=== PATIENT | male | born 1965 | race Hispanic/Latino ===

== ENCOUNTER 2022-10-08 10:27 | Inpatient (IN) | payer OTHER, SELFPAY ==
[2022-10-08 12:01] LABS: Hemoglobin 13.4 g/dL (13.5-17.5); Mean Corpuscular HGB CONC 34.4 g/dL (32.0-36.0); Mean Corpuscular Hemoglobin 32.4 pg (27.0-33.0); Mean Corpuscular Volume 94.2 fl (81.2-95.1); Mean Platelet Volume 9.6 fl (7.4-10.4); Platelet Count 249 10x3/uL (150-450); RBC Distribution Width 11.7 % (11.5-14.5); Red Blood Cell (RBC) Count 4.13 10x6/uL (4.32-5.72); White Blood Cell (WBC) Count 10.1 10x3/uL (3.5-10.5)
[2022-10-08 12:07] LABS: MDiff Complete? YES
[2022-10-08] MEDS ORDERED: Piperacillin/Tazobactam 4.5 GM VIAL ONE (12:17)
[2022-10-08 12:28] LABS: ALT (SGPT) 54 U/L (8-55); AST (SGOT) 52 U/L (5-34); Albumin 3.3 g/dL (3.5-5.0); Alkaline Phosphatase 200 U/L (40-110); Anion Gap 15 mmol/L (10-20); BUN (Urea Nitrogen) 15 mg/dL (8.4-25.7); Bilirubin, Total 0.6 mg/dL (0.2-1.2); Calc. Creatinine Clearance 0 mL/min (70-130); Calcium 9.5 mg/dL (7.8-10.44); Carbon Dioxide 24 mmol/L (22-29); Chloride 97 mmol/L (98-107); Estimated GFR 82; Globulin 5.6 g/dL (2.4-3.5); Glucose 176 mg/dL (70-105); Potassium 4.7 mmol/L (3.5-5.1); Protein, Total 8.9 g/dL (6.0-8.3); Sodium 131 mmol/L (136-145)
[2022-10-08] MEDS ORDERED: Vancomycin 1.5 GRAM/300 ML BAG 1.5 GM in Premix Bag 1 BAG IVPB SCH (13:00)
[2022-10-08 13:50] LABS: Eosinophils 33 % (0-10)
[2022-10-08 13:52] LABS: Lymphocytes 9 % (21-51)
[2022-10-08 13:53] LABS: Monocytes 9 % (0-10); Neutrophil 46 % (42-75); Platelet Morphology Comment Appears Adequate
[2022-10-08] MEDS ORDERED: Dextrose 50% Abboject 50 ML SYRINGE SLOW IVP PRN (16:25)
[2022-10-08] MEDS ORDERED: HumaLOG 300 UNITS/3 ML VIAL SC PRN (16:25)
[2022-10-08] MEDS ORDERED: Ondansetron ODT 4 MG TAB PO PRN (16:25)
[2022-10-08] MEDS ORDERED: Ondansetron PF 4 MG/2 ML Vial IVP PRN (16:25)
[2022-10-08] MEDS ORDERED: Dextrose 5% in Water 1,000 ML IV PRN (16:25)
[2022-10-08] MEDS ORDERED: Acetaminophen 325 MG TAB PO PRN (16:25)
[2022-10-08] MEDS ORDERED: Sodium Chloride 0.9% 1,000 ML IV SCH (16:30)
[2022-10-08] MEDS ORDERED: Electrolyte Replacement Protocol FS PRN (16:45)
[2022-10-08 17:08] VITALS: BMI 26.2
[2022-10-08] MEDS ORDERED: Morphine 2 MG/ML VIAL SLOW IVP PRN (17:28)
[2022-10-08] MEDS ORDERED: Multivit, Therapeutic 1 TAB PO SCH (18:00)
[2022-10-08] MEDS: Lisinopril 10 MG TAB PO SCH (20:56)
[2022-10-08] MEDS: Atorvastatin Calcium 10 MG TAB PO SCH (20:57)
[2022-10-08] MEDS: Cefepime 2 GM in Sodium Chloride 0.9% 100 ML IVPB SCH (20:58)
[2022-10-08] MEDS ORDERED: Vancomycin 1 GM in Premix Bag 1 BAG IVPB SCH (23:00)
[2022-10-09] MEDS: Vancomycin HCl 1 GM in Sodium Chloride 0.9% 250 ML 250 ML IVPB SCH ×2 (00:41→13:06)
[2022-10-09 05:40] LABS: #Basophils 0.3 10x3/uL (0.0-0.2); #Eosinphils 2.8 10x3/uL (0.0-0.5); #Monocytes 0.7 10x3/uL (0.0-1.1); #Neutrophils 4.3 10x3/uL (1.5-8.4); %Basophils 2.9 % (0.0-2.0); %Eosinophils 32.4 % (0.0-6.0); %Lymphocytes 7.3 % (18.0-47.0); %Monocytes 7.5 % (0.0-10.0); %Neutrophils 49.7 % (40.0-75.0); Hemoglobin 12.4 g/dL (13.5-17.5); Mean Corpuscular HGB CONC 33.9 g/dL (32.0-36.0); Mean Corpuscular Volume 94.6 fl (81.2-95.1); Mean Platelet Volume 9.9 fl (7.4-10.4); Platelet Count 212 10x3/uL (150-450); RBC Distribution Width 11.6 % (11.5-14.5); Red Blood Cell (RBC) Count 3.87 10x6/uL (4.32-5.72); White Blood Cell (WBC) Count 8.6 10x3/uL (3.5-10.5)
[2022-10-09 05:43] LABS: ALT (SGPT) 42 U/L (8-55); AST (SGOT) 37 U/L (5-34); Albumin 2.8 g/dL (3.5-5.0); Alkaline Phosphatase 155 U/L (40-110); Anion Gap 13 mmol/L (10-20); BUN (Urea Nitrogen) 14 mg/dL (8.4-25.7); Bilirubin, Total 0.5 mg/dL (0.2-1.2); Calc. Creatinine Clearance 100 mL/min (70-130); Calcium 8.8 mg/dL (7.8-10.44); Carbon Dioxide 23 mmol/L (22-29); Chloride 102 mmol/L (98-107); Estimated GFR 101; Glucose 125 mg/dL (70-105); Magnesium 1.6 mg/dL (1.6-2.6); Protein, Total 7.8 g/dL (6.0-8.3); Sodium 134 mmol/L (136-145)
[2022-10-09] MEDS ORDERED: Magnesium 2 GM/50 ML(in water) 2 GM in Premix Bag 1 BAG IVPB SCH (06:00)
[2022-10-09 06:28] LABS: Platelet Morphology Comment Appears Adequate; RBC Morphology Normal
[2022-10-09] MEDS: Folic Acid 1 MG TAB PO SCH (08:56)
[2022-10-09] MEDS: Aspirin 81 mg Enteric Coated Tablet PO SCH (08:56)
[2022-10-09] MEDS: Amlodipine 5 MG TAB PO SCH (08:56)
[2022-10-09] MEDS: Multivit, Therapeutic 1 TAB PO SCH (08:57)
[2022-10-09] MEDS: Cefepime 2 GM in Sodium Chloride 0.9% 100 ML IVPB SCH ×2 (10:12→21:06)
[2022-10-09] MEDS: HumaLOG 300 UNITS/3 ML VIAL SC PRN (16:59)
[2022-10-09] MEDS: Lisinopril 10 MG TAB PO SCH (21:07)
[2022-10-09] MEDS: Atorvastatin Calcium 10 MG TAB PO SCH (21:08)
[2022-10-10] MEDS: Vancomycin HCl 1 GM in Sodium Chloride 0.9% 250 ML 250 ML IVPB SCH (00:35)
[2022-10-10 00:48] LABS: Vancomycin, Trough 13.1 ug/mL
[2022-10-10 05:32] LABS: Hemoglobin 11.6 g/dL (13.5-17.5); MDiff Complete? YES; Mean Corpuscular HGB CONC 34.3 g/dL (32.0-36.0); Mean Corpuscular Hemoglobin 32.5 pg (27.0-33.0); Mean Corpuscular Volume 94.7 fl (81.2-95.1); Mean Platelet Volume 9.7 fl (7.4-10.4); Platelet Count 212 10x3/uL (150-450); RBC Distribution Width 11.7 % (11.5-14.5); Red Blood Cell (RBC) Count 3.57 10x6/uL (4.32-5.72); White Blood Cell (WBC) Count 8.7 10x3/uL (3.5-10.5)
[2022-10-10 05:34] LABS: ALT (SGPT) 36 U/L (8-55); AST (SGOT) 32 U/L (5-34); Albumin 2.6 g/dL (3.5-5.0); Alkaline Phosphatase 136 U/L (40-110); Anion Gap 12 mmol/L (10-20); BUN (Urea Nitrogen) 13 mg/dL (8.4-25.7); Bilirubin, Total 0.4 mg/dL (0.2-1.2); Calc. Creatinine Clearance 100 mL/min (70-130); Calcium 8.4 mg/dL (7.8-10.44); Carbon Dioxide 24 mmol/L (22-29); Chloride 103 mmol/L (98-107); Estimated GFR 101; Globulin 4.8 g/dL (2.4-3.5); Glucose 118 mg/dL (70-105); Magnesium 1.8 mg/dL (1.6-2.6); Protein, Total 7.4 g/dL (6.0-8.3); Sodium 135 mmol/L (136-145)
[2022-10-10] MEDS ORDERED: Magnesium 2 GM/50 ML(in water) 2 GM in Premix Bag 1 BAG IVPB SCH (06:00)
[2022-10-10 06:20] LABS: Band 1 % (5-11); Eosinophils 25 % (0-10); Lymphocytes 3 % (21-51); Monocytes 9 % (0-10); Neutrophil 62 % (42-75)
[2022-10-10 06:23] LABS: Anisocytosis SLIGHT = 6-15 cells (100X) (0-5/hpf); Macrocytosis SLIGHT = 6-15 cells (100X) (0-5/hpf); Microcytosis SLIGHT = 6-15 cells (100X) (0-5/hpf); Platelet Morphology Comment Appears Adequate
[2022-10-10] MEDS: Amlodipine 5 MG TAB PO SCH (08:40)
[2022-10-10] MEDS: Aspirin 81 mg Enteric Coated Tablet PO SCH (08:42)
[2022-10-10] MEDS: Multivit, Therapeutic 1 TAB PO SCH (08:42)
[2022-10-10] MEDS: Folic Acid 1 MG TAB PO SCH (08:42)
[2022-10-10] MEDS: Cefepime 2 GM in Sodium Chloride 0.9% 100 ML IVPB SCH ×2 (08:47→20:41)
[2022-10-10] MEDS: Vancomycin 1.5 GRAM/300 ML BAG 1.5 GM in Premix Bag 1 BAG IVPB SCH (13:43)
[2022-10-10] MEDS: HumaLOG 300 UNITS/3 ML VIAL SC PRN (13:52)
[2022-10-10 14:52] LABS: Reflex for Review?? YES
[2022-10-10 14:53] LABS: Lymphocytes 7 % (21-51); Monocytes 4 % (0-10); Neutrophil 52 % (42-75)
[2022-10-10 14:54] LABS: Eosinophils 35 % (0-10)
[2022-10-10 16:16] LABS: Critical Call w/ Read Back 353065
[2022-10-10] MEDS: Lisinopril 10 MG TAB PO SCH (20:41)
[2022-10-10] MEDS: Atorvastatin Calcium 10 MG TAB PO SCH (20:42)
[2022-10-11] MEDS: Vancomycin 1.5 GRAM/300 ML BAG 1.5 GM in Premix Bag 1 BAG IVPB SCH ×2 (00:39→12:21)
[2022-10-11 05:51] LABS: Hemoglobin 11.2 g/dL (13.5-17.5); Mean Corpuscular HGB CONC 33.8 g/dL (32.0-36.0); Mean Corpuscular Hemoglobin 32.4 pg (27.0-33.0); Mean Corpuscular Volume 95.7 fl (81.2-95.1); Mean Platelet Volume 10.2 fl (7.4-10.4); Platelet Count 207 10x3/uL (150-450); RBC Distribution Width 11.6 % (11.5-14.5); Red Blood Cell (RBC) Count 3.46 10x6/uL (4.32-5.72); White Blood Cell (WBC) Count 9.4 10x3/uL (3.5-10.5)
[2022-10-11 05:59] LABS: Anion Gap 13 mmol/L (10-20); BUN (Urea Nitrogen) 13 mg/dL (8.4-25.7); Calc. Creatinine Clearance 104 mL/min (70-130); Calcium 8.6 mg/dL (7.8-10.44); Carbon Dioxide 22 mmol/L (22-29); Chloride 103 mmol/L (98-107); Estimated GFR 102; Glucose 115 mg/dL (70-105); Magnesium 1.8 mg/dL (1.6-2.6); Potassium 4.2 mmol/L (3.5-5.1); Sodium 134 mmol/L (136-145)
[2022-10-11 07:10] LABS: Band 2 % (5-11); Eosinophils 34 % (0-10); Lymphocytes 9 % (21-51); MDiff Complete? YES; Monocytes 5 % (0-10); Neutrophil 50 % (42-75)
[2022-10-11 07:11] LABS: Platelet Morphology Comment Appears Adequate; RBC Morphology Normal
[2022-10-11] MEDS ORDERED: Magnesium 2 GM/50 ML(in water) 2 GM in Premix Bag 1 BAG IVPB SCH (08:00)
[2022-10-11] MEDS: Cefepime 2 GM in Sodium Chloride 0.9% 100 ML IVPB SCH ×2 (08:13→20:53)
[2022-10-11] MEDS: Folic Acid 1 MG TAB PO SCH (08:15)
[2022-10-11] MEDS: Aspirin 81 mg Enteric Coated Tablet PO SCH (08:15)
[2022-10-11] MEDS: Amlodipine 5 MG TAB PO SCH (08:15)
[2022-10-11] MEDS: Multivit, Therapeutic 1 TAB PO SCH (08:15)
[2022-10-11] MEDS: HumaLOG 300 UNITS/3 ML VIAL SC PRN ×2 (12:20→17:32)
[2022-10-11] MEDS: Thiamine 100 MG TAB PO SCH (17:32)
[2022-10-11] MEDS ORDERED: FLU VACC QS2022-23(6MO UP)/PF 60 MCG/0.5 ML SYRINGE IM ONE (18:00)
[2022-10-11] MEDS ORDERED: Cefepime 2 GM VIAL ONE (20:49)
[2022-10-11] MEDS: Atorvastatin Calcium 10 MG TAB PO SCH (20:53)
[2022-10-11] MEDS: Lisinopril 10 MG TAB PO SCH (20:53)
[2022-10-12] MEDS: Vancomycin 1.5 GRAM/300 ML BAG 1.5 GM in Premix Bag 1 BAG IVPB SCH (00:33)
[2022-10-12 00:52] LABS: Vancomycin, Trough 19.3 ug/mL
[2022-10-12 01:59] LABS: SARS-CoV-2 NAA Rapid Test Not Detected (NotDetected)
[2022-10-12 05:42] LABS: Hemoglobin 11.1 g/dL (13.5-17.5); Mean Corpuscular Hemoglobin 32.1 pg (27.0-33.0); Mean Corpuscular Volume 94.2 fl (81.2-95.1); Mean Platelet Volume 10.1 fl (7.4-10.4); Platelet Count 193 10x3/uL (150-450); RBC Distribution Width 11.3 % (11.5-14.5); Red Blood Cell (RBC) Count 3.46 10x6/uL (4.32-5.72); White Blood Cell (WBC) Count 9.8 10x3/uL (3.5-10.5)
[2022-10-12 05:43] LABS: MDiff Complete? YES
[2022-10-12 06:05] LABS: Anion Gap 14 mmol/L (10-20); BUN (Urea Nitrogen) 14 mg/dL (8.4-25.7); Calc. Creatinine Clearance 109 mL/min (70-130); Calcium 8.9 mg/dL (7.8-10.44); Carbon Dioxide 21 mmol/L (22-29); Chloride 102 mmol/L (98-107); Estimated GFR 104; Glucose 120 mg/dL (70-105); Magnesium 1.8 mg/dL (1.6-2.6); Potassium 4.1 mmol/L (3.5-5.1); Sodium 133 mmol/L (136-145)
[2022-10-12 06:09] LABS: Eosinophils 21 % (0-10); Lymphocytes 14 % (21-51); Monocytes 11 % (0-10); Neutrophil 54 % (42-75)
[2022-10-12 06:10] LABS: Platelet Morphology Comment Appears Adequate
[2022-10-12 06:11] LABS: RBC Morphology Normal
[2022-10-12] MEDS ORDERED: Magnesium 2 GM/50 ML(in water) 2 GM in Premix Bag 1 BAG IVPB SCH (08:00)
[2022-10-12] MEDS: Multivit, Therapeutic 1 TAB PO SCH (09:34)
[2022-10-12] MEDS: Amlodipine 5 MG TAB PO SCH (09:34)
[2022-10-12] MEDS: Folic Acid 1 MG TAB PO SCH (09:35)
[2022-10-12] MEDS: Cefepime 2 GM in Sodium Chloride 0.9% 100 ML IVPB SCH ×2 (09:35→20:51)
[2022-10-12] MEDS: Aspirin 81 mg Enteric Coated Tablet PO SCH (09:36)
[2022-10-12] MEDS ORDERED: VANCOMYCIN 1.25 GM/250 ML BAG 1.25 GM in Premix Bag 1 BAG IVPB SCH (13:00)
[2022-10-12] MEDS ORDERED: Fentanyl 100 MCG/2 ML VIAL ONE (17:56)
[2022-10-12] MEDS ORDERED: PROPOFOL 20 ML ONE (17:56)
[2022-10-12] MEDS ORDERED: Ondansetron PF 4 MG/2 ML Vial ONE (18:16)
[2022-10-12] MEDS ORDERED: Neomycin-Polymyxin 1 ML AMP ONE (18:20)
[2022-10-12] MEDS ORDERED: Bupivacaine PF 0.5% 30 ML VIAL ONE (18:20)
[2022-10-12] MEDS: Lisinopril 10 MG TAB PO SCH (20:50)
[2022-10-12] MEDS: Atorvastatin Calcium 10 MG TAB PO SCH (20:50)
[2022-10-12] MEDS: Thiamine 100 MG TAB PO SCH (20:50)
[2022-10-13] MEDS: Ampicillin/Sulbactam 3 GM in Sodium Chloride 0.9% 100 ML IVPB SCH ×3 (00:08→14:03)
[2022-10-13 04:52] LABS: Hemoglobin 10.9 g/dL (13.5-17.5); Mean Corpuscular HGB CONC 33.4 g/dL (32.0-36.0); Mean Corpuscular Hemoglobin 32.2 pg (27.0-33.0); Mean Corpuscular Volume 96.2 fl (81.2-95.1); Platelet Count 198 10x3/uL (150-450); RBC Distribution Width 11.8 % (11.5-14.5); Red Blood Cell (RBC) Count 3.39 10x6/uL (4.32-5.72); White Blood Cell (WBC) Count 9.4 10x3/uL (3.5-10.5)
[2022-10-13 04:55] LABS: MDiff Complete? YES
[2022-10-13 04:57] LABS: Anion Gap 12 mmol/L (10-20); BUN (Urea Nitrogen) 16 mg/dL (8.4-25.7); Calc. Creatinine Clearance 98 mL/min (70-130); Calcium 8.7 mg/dL (7.8-10.44); Carbon Dioxide 24 mmol/L (22-29); Chloride 102 mmol/L (98-107); Estimated GFR 101; Glucose 175 mg/dL (70-105); Magnesium 1.9 mg/dL (1.6-2.6); Sodium 134 mmol/L (136-145)
[2022-10-13 06:19] LABS: Band 1 % (5-11); Eosinophils 38 % (0-10); Lymphocytes 9 % (21-51); Monocytes 11 % (0-10); Neutrophil 41 % (42-75)
[2022-10-13 06:22] LABS: Microcytosis SLIGHT = 6-15 cells (100X) (0-5/hpf)
[2022-10-13 06:23] LABS: Platelet Morphology Comment Appears Adequate
[2022-10-13] MEDS ORDERED: Fluconazole 100 MG TAB PO SCH (09:00)
[2022-10-13] MEDS: Multivit, Therapeutic 1 TAB PO SCH (09:44)
[2022-10-13] MEDS: Amlodipine 5 MG TAB PO SCH (09:44)
[2022-10-13] MEDS: Aspirin 81 mg Enteric Coated Tablet PO SCH (09:44)
[2022-10-13] MEDS: Folic Acid 1 MG TAB PO SCH (09:44)
[2022-10-13 18:43] VITALS: BP 179/92; TEMP 98.7
== END 2022-10-13 18:30 | disposition home or self-care (01) | DRG 617 ==
LOC: CSHERS 10:27 → CSHTELE 15:44 → OBSVTOIN 16:24
PROVIDERS: ADMIT Internal Medicine; ATTEND Internal Medicine
PROC: 0Y6Y0Z1 Detachment at Left 5th Toe, High, Open Approach (ICD-10-PCS; principal; 2022-10-12)
DX: E11.69 Type 2 diabetes mellitus with other specified complication (principal); E11.52 Type 2 diabetes mellitus with diabetic peripheral angiopathy with gangrene; M86.8X8 Other osteomyelitis, other site; I10 Essential (primary) hypertension; E78.5 Hyperlipidemia, unspecified; S92.912A Unspecified fracture of left toe(s), initial encounter for closed fracture; X58.XXXA Exposure to other specified factors, initial encounter; F10.10 Alcohol abuse, uncomplicated; D63.8 Anemia in other chronic diseases classified elsewhere; Z20.822 Contact with and (suspected) exposure to COVID-19; Y92.9 Unspecified place or not applicable; Z79.82 Long term (current) use of aspirin; Z79.84 Long term (current) use of oral hypoglycemic drugs; Z79.899 Other long term (current) drug therapy
CPT/HCPCS: 36415; 36416; 80048; 80053; 80202; 82607; 83036; 83605; 83735; 84425; 85025; 85060; 85652; 86140; 87040; 87070; 87077; 87186; 87205; 88305; 93005; 93010; 94760; 96365; 96366; 96367; 97139; G0378; J0295; J0692; J1650; J1815; J2405; J2543; J2704; J3010; J3370; J3475; J3490; J7050; S0020; U0002

== ENCOUNTER 2022-11-20 21:36 | Observation (INO) | payer OTHER, SELFPAY ==
[2022-11-20 22:58] LABS: Hemoglobin 9.7 g/dL (13.5-17.5); MDiff Complete? YES; Mean Corpuscular HGB CONC 33.9 g/dL (32.0-36.0); Mean Corpuscular Hemoglobin 31.1 pg (27.0-33.0); Mean Corpuscular Volume 91.7 fl (81.2-95.1); Mean Platelet Volume 10.3 fl (7.4-10.4); Platelet Count 185 10x3/uL (150-450); RBC Distribution Width 12.4 % (11.5-14.5); Red Blood Cell (RBC) Count 3.12 10x6/uL (4.32-5.72); White Blood Cell (WBC) Count 7.9 10x3/uL (3.5-10.5)
[2022-11-20 23:07] LABS: ALT (SGPT) 39 U/L (8-55); AST (SGOT) 47 U/L (5-34); Albumin 3.6 g/dL (3.5-5.0); Alkaline Phosphatase 190 U/L (40-110); Anion Gap 15 mmol/L (10-20); BUN (Urea Nitrogen) 21 mg/dL (8.4-25.7); Bilirubin, Total 0.5 mg/dL (0.2-1.2); Calc. Creatinine Clearance 0 mL/min (70-130); Calcium 9.3 mg/dL (7.8-10.44); Carbon Dioxide 23 mmol/L (22-29); Chloride 98 mmol/L (98-107); Estimated GFR 60; Globulin 5.2 g/dL (2.4-3.5); Glucose 112 mg/dL (70-105); Potassium 4.3 mmol/L (3.5-5.1); Protein, Total 8.8 g/dL (6.0-8.3); Sodium 132 mmol/L (136-145)
[2022-11-20 23:21] LABS: Eosinophils 22 % (0-10); Lymphocytes 11 % (21-51); Monocytes 8 % (0-10); Neutrophil 59 % (42-75); Platelet Morphology Comment Appears Adequate
[2022-11-21] MEDS ORDERED: Acetaminophen 325 MG TAB PO PRN (04:16)
[2022-11-21 04:38] VITALS: BMI 18.7
[2022-11-21] MEDS: Thiamine 100 MG TAB PO SCH (08:06)
[2022-11-21] MEDS: Folic Acid 1 MG TAB PO SCH (08:06)
[2022-11-21] MEDS: Aspirin 81 mg Enteric Coated Tablet PO SCH (08:06)
[2022-11-21] MEDS: Multivitamin W/ Minerals 1 TAB PO SCH (08:06)
[2022-11-21] MEDS: metFORMIN 500 MG TAB PO SCH ×2 (08:06→18:17)
[2022-11-21] MEDS: Lisinopril 20 MG TAB PO SCH ×2 (08:06→21:22)
[2022-11-21] MEDS: Hydrochlorothiazide 25 MG TAB PO SCH ×2 (08:07→21:21)
[2022-11-21] MEDS: Amlodipine 10 MG TAB PO SCH (08:14)
[2022-11-21] MEDS ORDERED: Dextrose 5% in Water 1,000 ML IV PRN (12:06)
[2022-11-21] MEDS ORDERED: Dextrose 50% Abboject 50 ML SYRINGE SLOW IVP PRN (12:06)
[2022-11-21] MEDS: Cefepime 2 GM in Sodium Chloride 0.9% 100 ML IVPB SCH (13:48)
[2022-11-21] MEDS ORDERED: Vancomycin 1.5 GRAM/300 ML BAG 1.5 GM in Premix Bag 1 BAG IVPB SCH (14:00)
[2022-11-21] MEDS ORDERED: Atorvastatin Calcium 10 MG TAB PO SCH (21:00)
[2022-11-22] MEDS: Cefepime 2 GM in Sodium Chloride 0.9% 100 ML IVPB SCH (01:14)
[2022-11-22] MEDS ORDERED: Vancomycin HCl 1 GM in Sodium Chloride 0.9% 250 ML 250 ML IVPB SCH (04:00)
[2022-11-22 04:51] LABS: Hemoglobin 9.3 g/dL (13.5-17.5); MDiff Complete? YES; Mean Corpuscular HGB CONC 32.7 g/dL (32.0-36.0); Mean Corpuscular Hemoglobin 30.7 pg (27.0-33.0); Mean Corpuscular Volume 93.7 fl (81.2-95.1); Mean Platelet Volume 10.5 fl (7.4-10.4); Platelet Count 162 10x3/uL (150-450); RBC Distribution Width 12.3 % (11.5-14.5); Red Blood Cell (RBC) Count 3.03 10x6/uL (4.32-5.72); White Blood Cell (WBC) Count 7.2 10x3/uL (3.5-10.5)
[2022-11-22 05:12] LABS: Anion Gap 14 mmol/L (10-20); BUN (Urea Nitrogen) 18 mg/dL (8.4-25.7); Calc. Creatinine Clearance 87 mL/min (70-130); Calcium 9.1 mg/dL (7.8-10.44); Carbon Dioxide 23 mmol/L (22-29); Chloride 101 mmol/L (98-107); Estimated GFR 85; Glucose 190 mg/dL (70-105); Potassium 4.4 mmol/L (3.5-5.1); Sodium 134 mmol/L (136-145)
[2022-11-22 05:30] LABS: Eosinophils 26 % (0-10); Lymphocytes 14 % (21-51); Monocytes 9 % (0-10); Neutrophil 48 % (42-75); Reactive Lymphocytes 1 % (0-10)
[2022-11-22 05:31] LABS: Hypochromia SLIGHT = 6-15 cells (100X) (0-5/hpf); Platelet Morphology Comment Appears Adequate
[2022-11-22] MEDS: Folic Acid 1 MG TAB PO SCH (11:40)
[2022-11-22] MEDS: Aspirin 81 mg Enteric Coated Tablet PO SCH (11:40)
[2022-11-22] MEDS: metFORMIN 500 MG TAB PO SCH (11:40)
[2022-11-22] MEDS: Hydrochlorothiazide 25 MG TAB PO SCH (11:40)
[2022-11-22] MEDS: Thiamine 100 MG TAB PO SCH (11:41)
[2022-11-22] MEDS: Multivitamin W/ Minerals 1 TAB PO SCH (11:41)
[2022-11-22] MEDS: Lisinopril 20 MG TAB PO SCH (11:41)
[2022-11-22] MEDS: Amlodipine 10 MG TAB PO SCH (11:41)
[2022-11-22 12:47] VITALS: BP 141/78; TEMP 97.7
== END 2022-11-22 13:07 | disposition home or self-care (01) ==
LOC: CSHERS 21:36 → UNDOADMIN 11-21 04:21 → CSHTELE 11-21 04:21 → INTOOBSV 11-21 04:51 → OBSVTOIN 11-21 04:51 → CSHTELE 11-21 04:51
PROVIDERS: ADMIT Family Medicine; ATTEND Internal Medicine
DX: T81.30XA Disruption of wound, unspecified, initial encounter (principal); E11.9 Type 2 diabetes mellitus without complications; E78.5 Hyperlipidemia, unspecified; I10 Essential (primary) hypertension; D63.8 Anemia in other chronic diseases classified elsewhere; Z79.82 Long term (current) use of aspirin; Z79.899 Other long term (current) drug therapy; Z79.84 Long term (current) use of oral hypoglycemic drugs
CPT/HCPCS: 36415; 36416; 80048; 80053; 83605; 85025; 86140; 87070; 87077; 87186; 87205; 96374; 96375; 96376; 97139; G0378; J0692; J1650; J3370; J3490; J7050